=== PATIENT | male | born 1965 | race Caucasian/White ===

== ENCOUNTER 2019-04-25 12:25 | Emergency (ER) | payer BC ==
[2019-04-25 13:28] LABS: ABS Basophils 0.1 10^3/ul (0-0.2); ABS Eosinophils 0.1 10^3/ul (0-0.6); ABS Lymphocytes 1.6 10^3/ul (1.0-4.8); ABS Monocytes 0.7 10^3/ul (0-0.8); ABS Neutrophils 4.5 10^3/ul (1.5-7.7); Eosinophil % 0.9 %; Hematocrit 43 % (42-52); Lymphocyte % 22.9 %; Mean Corpuscular HGB Conc 35 g/dL (31-36); Mean Corpuscular Hemoglobin 31 pg (27-31); Mean Corpuscular Volume 91 fL (80-94); Mean Platelet Volume 9.1 fL (7.4-10.4); Nucleated Red Blood Cells % 0.1; Platelet Count 277 10^3/uL (150-450); Red Blood Count 4.78 10^6 /uL (4.18-5.48); Red Cell Distribution Width 14 % (10-15); White Blood Count 6.8 10^3/uL (3.5-10.8)
[2019-04-25 13:35] LABS: INR 0.97 (0.82-1.09)
[2019-04-25 14:16] LABS: Albumin 4.1 g/dL (3.2-5.2); Albumin/Globulin Ratio 1.8 (1-3); Calcium 9.5 mg/dL (8.6-10.3); Globulin 2.3 g/dL (2-4); Potassium 4.2 mmol/L (3.5-5.0); Total Bilirubin 0.3 mg/dL (0.2-1.0); Total Protein 6.4 g/dL (6.4-8.9)
[2019-04-25 15:50] LABS: BUN/Creatinine Ratio 17.4 (8-20); EGFR African American 112.1 (>60); EGFR Non-African American 92.7 (>60)
--- NOTE | 2019-04-25 17:13 | ED ---
HPI Chest Pain - HPI Summary HPI Summary: Patient is a 53 y/o M presenting to [facility] with complaints of left-sided chest pain for the past two weeks. He thought the pain was due to a pulled muscle. Patient had appointment with PCP today, patient was advised to come to ED for further workup. He states that the pain has been mostly constant with some intermittent periods where the pain completely resolves. Some SOB is noted, the patient also states that he experienced some dizziness yesterday. However, the dizziness is since resolved. Patient also makes note of some night sweats. He denies nausea and pain/swelling in legs. He denies any aggravating and alleviating Sx. Pain is currently rated 2/10. Patient reports having a similar previous episode some time ago. Workup that was done at the time was negative. He notes having a stress test eight years ago that resulted negative as well. He denies Hx of blood clots, recent surgery, recent travel/immobilization, and hormone usage. Patient notes that he is on baby ASA and omeprazole. FMHx of cardiac disease, NE in father at age 39 reported. He states that he smokes less than a pack a day and has been smoking since age 13. Patient also reports marijuana usage but denies any other substance usage. Home medications and allergies are reviewed. - History of Current Complaint Chief Complaint: EDChestPainROMI Time Seen by Provider: 04/25/19 17:06 Hx Obtained From: Patient Onset/Duration: Started Weeks Ago, Still Present Timing: Lasting Weeks Current Severity: Mild Pain Intensity: 2 Pain Scale Used: 0-10 Numeric Chest Pain Location: Left Anterior Aggravating Factor(s): Nothing Alleviating Factor(s): Nothing Associated Signs and Symptoms: Positive: Dizziness, Shortness of Breath, Diaphoresis - night sweats. Negative: Nausea, Calf Pain/Swelling - Allergy/Home Medications Allergies/Adverse Reactions: Allergies Allergy/AdvReac Type Severity Reaction Status Date / Time No Known Allergies Allergy Verified 04/25/19 12:36 Home Medications: Home Medications Aspirin 81 mg CHEW TAB* [Aspirin Low Dose TAB*] 81 mg PO DAILY 04/25/19 [ History Confirmed 04/25/19] Pantoprazole TAB * [Protonix TAB*] 40 mg PO DAILY 04/25/19 [History Confirmed ] PMH/Surg Hx/FS Hx/Imm Hx Endocrine/Hematology History: Denies: Hx Diabetes Cardiovascular History: Denies: Hx Congestive Heart Failure, Hx Hypertension History: Denies: Hx Renal Disease - Surgical History Surgery Procedure, Year, and Place: KNEE Infectious Disease History: No Infectious Disease History: Denies: Traveled Outside the [place] in Last 30 Days - Family History Known Family History: Positive: Cardiac Disease - Social History Alcohol Use: None Substance Use Type: Reports: Excessive Caffeine, Marijuana Smoking Status (MU): Heavy Every Day Tobacco Smoker Review of Systems Positive: Skin Diaphoresis - night sweats Positive: Chest Pain Positive: Shortness Of Breath Negative: Nausea Musculoskeletal: Other - negative - leg pain/swelling Neurological: Other - positive - dizziness, since resolved All Other Systems Reviewed And Are Negative: Yes Physical Exam - Summary Physical Exam Summary: Constitutional: Well-developed, Well-nourished, Alert. (-) Distressed Skin: Warm, Dry HENT: Normocephalic; Atraumatic Eyes: Conjunctiva normal Neck: Musculoskeletal ROM normal neck. (-) JVD, (-) Stridor, (-) Tracheal deviation Cardio: Rhythm regular, rate normal, Heart sounds normal; Intact distal pulses; Radial pulses are 2+ and symmetric. (-) Murmur Pulmonary/Chest wall: Effort normal. (-) Respiratory distress, (-) Wheezes, (-) Rales Abd: Soft, (-) tenderness, (-) Distension, (-) Guarding, (-) Rebound Musculoskeletal: (-) Edema Lymph: (-) Cervical adenopathy Neuro: Alert, Oriented x3 Psych: Mood and affect Normal Triage Information Reviewed: Yes Vital Signs On Initial Exam: Initial Vitals Temp Pulse Resp BP Pulse Ox 98.2 F 62 16 146/77 100 04/25/19 12:27 04/25/19 12:27 04/25/19 12:27 04/25/19 12:27 04/25/19 12:27 Vital Signs Reviewed: Yes Procedures - Sedation Patient Received Moderate/Deep Sedation with Procedure: No Diagnostics - Vital Signs Vital Signs Temp Pulse Resp BP Pulse Ox 04/25/19 14:31 98.4 F 62 16 143/72 96 04/25/19 12:27 98.2 F 62 16 146/77 100 - Laboratory Lab Results: Lab Results 04/25/19 04/25/19 04/25/19 Range/Units 12:57 12:57 12:57 WBC 6.8 (3.5-10.8) 10^3/uL RBC 4.78 (4.18-5.48) 10^6 /uL Hgb 15.0 (14.0-18.0) g/dL Hct 43 (42-52) % MCV 91 (80-94) fL MCH 31 (27-31) pg MCHC 35 (31-36) g/dL RDW 14 (10-15) % Plt Count 277 (150-450) 10^3/uL MPV 9.1 (7.4-10.4) fL Neut % (Auto) 65.6 % Lymph % (Auto) 22.9 % Hemphill % (Auto) 9.7 % Eos % (Auto) 0.9 % Baso % (Auto) 0.9 % Absolute Neuts (auto) 4.5 (1.5-7.7) 10^3/ul Absolute Lymphs (auto) 1.6 (1.0-4.8) 10^3/ul Absolute Monos (auto) 0.7 (0-0.8) 10^3/ul Absolute Eos (auto) 0.1 (0-0.6) 10^3/ul Absolute Basos (auto) 0.1 (0-0.2) 10^3/ul Absolute Nucleated RBC 0.0 10^3/ul Nucleated RBC % 0.1 INR (Anticoag Therapy) 0.97 (0.82-1.09) Sodium 140 (135-145) mmol/L Potassium 4.2 (3.5-5.0) mmol/L Chloride 105 (101-111) mmol/L Carbon Dioxide 27 (22-32) mmol/L Anion Gap 8 (2-11) mmol/L BUN 15 (6-24) mg/dL Creatinine 0.86 (0.67-1.17) mg/dL Est GFR ( Amer) 112.1 (>60) Est GFR (Non-Af Amer) 92.7 (>60) BUN/Creatinine Ratio 17.4 (8-20) Glucose 99 (70-100) mg/dL Calcium 9.5 (8.6-10.3) mg/dL Total Bilirubin 0.30 (0.2-1.0) mg/dL AST 25 (13-39) U/L ALT 19 (7-52) U/L Alkaline Phosphatase 79 (34-104) U/L Troponin I 0.00 (<0.03) ng/mL Total Protein 6.4 (6.4-8.9) g/dL Albumin 4.1 (3.2-5.2) g/dL Globulin 2.3 (2-4) g/dL Albumin/Globulin Ratio 1.8 (1-3) 04/25/19 Range/Units 16:06 WBC (3.5-10.8) 10^3/uL RBC (4.18-5.48) 10^6 /uL Hgb (14.0-18.0) g/dL Hct (42-52) % MCV (80-94) fL MCH (27-31) pg MCHC (31-36) g/dL RDW (10-15) % Plt Count (150-450) 10^3/uL MPV (7.4-10.4) fL Neut % (Auto) % Lymph % (Auto) % Hemphill % (Auto) % Eos % (Auto) % Baso % (Auto) % Absolute Neuts (auto) (1.5-7.7) 10^3/ul Absolute Lymphs (auto) (1.0-4.8) 10^3/ul Absolute Monos (auto) (0-0.8) 10^3/ul Absolute Eos (auto) (0-0.6) 10^3/ul Absolute Basos (auto) (0-0.2) 10^3/ul Absolute Nucleated RBC 10^3/ul Nucleated RBC % INR (Anticoag Therapy) (0.82-1.09) Sodium (135-145) mmol/L Potassium (3.5-5.0) mmol/L Chloride (101-111) mmol/L Carbon Dioxide (22-32) mmol/L Anion Gap (2-11) mmol/L BUN (6-24) mg/dL Creatinine (0.67-1.17) mg/dL Est GFR ( Amer) (>60) Est GFR (Non-Af Amer) (>60) BUN/Creatinine Ratio (8-20) Glucose (70-100) mg/dL Calcium (8.6-10.3) mg/dL Total Bilirubin (0.2-1.0) mg/dL AST (13-39) U/L ALT (7-52) U/L Alkaline Phosphatase (34-104) U/L Troponin I 0.00 (<0.03) ng/mL Total Protein (6.4-8.9) g/dL Albumin (3.2-5.2) g/dL Globulin (2-4) g/dL Albumin/Globulin Ratio (1-3) Result Diagrams: 04/25/19 12:57 04/25/19 12:57 Lab Statement: Any lab studies that have been ordered have been reviewed, and results considered in the medical decision making process. - Radiology CXR Radiology Interpretation Completed By: ED Physician Summary of Radiographic Findings: CXR shows hyper-expanded lungs with no acute process. - EKG 1227 Cardiac Rate: NL - rate of 61 BPM EKG Rhythm: Sinus Rhythm Summary of EKG Findings: EKG showed NSR with rate of 61 BPM, no STEMI. This EKG was reviewed and interpreted by ED physician. Re-Evaluation - Re-Evaluation First Eval Re-Evaluation Time: 18:25 Comment: Workup discussed, patient discharged to home. Chest Pain Course/Dx - Course Course Of Treatment: Patient is here with 2 weeks of left-sided chest pain. Patient's symptoms are not exertional in nature. Patient is overall well- appearing with a well's score of 0 for PE. Patient had a negative chest x-ray for any acute process. Patient had serial troponins which were negative. Patient EKG showed no ischemic changes. Patient has a heart score of 2 and was given cardiology for follow-up stress test. - Diagnoses Provider Diagnoses: Chest pain, SOB (shortness of breath) Discharge ED - Sign-Out/Discharge Documenting (check all that apply): Patient Departure - discharge - Discharge Plan Condition: Stable Disposition: HOME Prescriptions: Naproxen TAB* [Naprosyn 375 mg TAB*] 375 mg PO BID PRN #30 tab PRN Reason: Pain - Moderate Patient Education Materials: Chest Pain (ED), Shortness of Breath (ED) Referrals: Ritesh Lockhart MD [Medical Doctor] - 3 Days Rajiv Anderson MD [Medical Doctor] - 3 Days Additional Instructions: Follow up with Dr. Anderson, cardiology, for cardiac stress test, and with Dr. Lockhart in 1-3 days. Continue your efforts to quit smoking. Take your Naproxen as prescribed. Continue to take your baby aspirin. Return to ED for any worsening chest pain, SOB, and any other new, worsening, or concerning symptoms. - Billing Disposition and Condition Condition: STABLE Disposition: Home - Attestation Statements Document Initiated by Mandy: Yes Documenting Scribe: CASIMIRO RESTREPO Provider For Whom Mandy is Documenting (Include Credential): OLIVER WIGGINS MD Scribe Attestation: I, CASIMIRO RESTREPO, scribed for OLIVER WIGGINS MD on 04/25/19 at 1845. Scribe Documentation Reviewed: Yes Provider Attestation: The documentation as recorded by the CASIMIRO carter accurately reflects the service I personally performed and the decisions made by me, OLIVER WIGGINS MD Status of Scribe Document: Viewed
[2019-04-25 18:05] VITALS: BP 142/101
== END 2019-04-25 18:36 | disposition home or self-care (01) ==
LOC: ED 12:25
DX: R07.89 Other chest pain (principal); R06.02 Shortness of breath; R61 Generalized hyperhidrosis; Z79.82 Long term (current) use of aspirin; F17.200 Nicotine dependence, unspecified, uncomplicated
CPT/HCPCS: 36415; 71046; 80053; 84484; 85025; 85610; 93005; 99283